=== PATIENT | female | born 1980 | race Caucasian/White ===

== ENCOUNTER → 2019-05-23 09:00 | Outpatient (CLI) | payer OTHER ==
[2014-01-17 00:28] VITALS: BMI 22.0
[~2019-05-23 09:00] MED LIST: ACETAMINOPHEN325 MG PO; AFRIN15 ML NASAL; HYDROCODONE-APA1 TAB PO; TORADOL10 MG PO; WELLBUTRIN SR150 MG PO; ZOFRAN4 MG PO
== END | disposition home or self-care (01) ==
LOC: D.MAMMO 04-25 15:30
PROVIDERS: ATTEND Emergency Medicine
DX: Z12.31 Encounter for screening mammogram for malignant neoplasm of breast (principal)